=== PATIENT | female | born 1960 | race Caucasian/White ===

== ENCOUNTER 2023-02-20 13:36 | Emergency (ER) | payer MEDICARE, OTHER ==
[~2023-02-20] VITALS: Ht 160 cm; Wt 110.0 kg
[2023-02-20 15:20] VITALS: BP 109/71; PULSE 74; RESP 20; O2SAT 97
[2023-02-20] MEDS ORDERED: IBUP-1456 PO (15:55)
[2023-02-20] MEDS ORDERED: IBUPROFEN 800 MG TAB PO ONE (16:00)
[2023-02-20 16:09] VITALS: TEMP 97.7
== END 2023-02-20 16:09 | disposition home or self-care (01) ==
LOC: ER 13:36
DX: S63.501A Unspecified sprain of right wrist, initial encounter (principal); E11.9 Type 2 diabetes mellitus without complications; Z79.1 Long term (current) use of non-steroidal anti-inflammatories (NSAID); Z88.8 Allergy status to other drugs, medicaments and biological substances; X50.1XXA Overexertion from prolonged static or awkward postures, initial encounter; Y93.89 Activity, other specified; Y92.89 Other specified places as the place of occurrence of the external cause; Y99.8 Other external cause status
CPT/HCPCS: 73110